=== PATIENT | female | born 1985 | race Two or more races ===

== ENCOUNTER 2019-03-07 11:26 | Emergency (ER) | payer MEDICAID ==
[2019-03-07] MEDS ORDERED: DIPHENHYDRAMINE HCL 50 MG CAPSULE PO ONE (12:06)
--- NOTE | 2019-03-07 12:11 | ER Document Report ---
ED Medical Screen (RME) - General Chief Complaint: Weakness Stated Complaint: WEAKNESS Time Seen by Provider: 03/07/19 12:01 Primary Care Provider: ANGELA TERRELL MD [Primary Care Provider] - Follow up as needed Notes: Patient is a 33-year-old female who presents to the emergency department with a chief complaint of dizziness. Patient states that her symptoms started yesterday. The symptoms have gotten progressively worse. She also has pressure in the front part of her head, but denies any headache. Patient states that she is never had this before. Last menstrual cycle was February 21. Exam: 5/5 strength in all extremities. I have greeted and performed a rapid initial assessment of this patient. A comprehensive ED assessment and evaluation of the patient, analysis of test results and completion of medical decision making process will be conducted by an additional ED providers. TRAVEL OUTSIDE OF THE [place] IN LAST 30 DAYS: No - Related Data Allergies/Adverse Reactions: loratadine [From Claritin] Allergy (Mild, Verified 03/07/19 11:59) Hives Penicillins Allergy (Mild, Verified 03/07/19 11:59) Hives Past Medical History - Past Medical History Cardiac Medical History: Denies: Hx Hypertension, Hx Heart Murmur Neurological Medical History: Reports: Hx Migraine. Denies: Hx Cerebrovascular Accident, Hx Seizures Renal/ Medical History: Reports: Hx Kidney Stones - Last 2011, Hx Ovarian Cysts - left ovary GI Medical History: Reports: Hx Gastroesophageal Reflux Disease - tums. Denies: Hx Hiatal Hernia, Hx Ulcer Past Surgical History: Reports: Hx Section, Hx Tonsillectomy. Denies: Hx Hysterectomy, Hx Pacemaker - Immunizations Hx Diphtheria, Pertussis, Tetanus Vaccination: Yes - received 2009 Physical Exam - Vital signs Vitals: Temp Pulse Resp BP Pulse Ox 98 F 107 H 16 143/88 H 96 03/07/19 11:47 03/07/19 11:47 03/07/19 11:47 03/07/19 11:47 03/07/19 11:47 Course - Vital Signs Vital signs: Temp Pulse Resp BP Pulse Ox 98 F 107 H 16 143/88 H 96 03/07/19 11:47 03/07/19 11:47 03/07/19 11:47 03/07/19 11:47 03/07/19 11:47 Doctor's Discharge - Discharge Referrals: ANGELA TERRELL MD [Primary Care Provider] - Follow up as needed
[2019-03-07 12:48] LABS: ABSOLUTE EOSINOPHILS # (AUTO) 0.1 10^3/uL (0.0-0.6); ABSOLUTE LYMPHOCYTES (AUTO) 2.8 10^3/uL (0.5-4.7); ABSOLUTE MONOCYTES (AUTO) 0.4 10^3/uL (0.1-1.4); ABSOLUTE NEUT (AUTO) 2.8 10^3/uL (1.7-8.2); BASOPHILS % (AUTO) 0.3 % (0-2); EOSINOPHILS % (AUTO) 1.2 % (0-6); HEMATOCRIT 41.6 % (36.0-47.0); HEMOGLOBIN 14.2 g/dL (12.0-15.5); LYMPHOCYTES % (AUTO) 46.3 % (13-45); MEAN CORPUSCULAR HGB CONC 34.3 g/dL (32.0-36.0); MEAN CORPUSCULAR VOLUME 87 fl (80-97); MONOCYTES % (AUTO) 5.9 % (3-13); PLATELET COUNT 298 10^3/uL (150-450); RED BLOOD COUNT 4.76 10^6/uL (3.72-5.28); RED CELL DISTRIBUTION WIDTH 12.7 % (11.5-14.0); SEGMENTED NEUTROPHILS % (AUTO) 46.3 % (42-78); TOTAL CELLS COUNTED % (AUTO) 100 %
[2019-03-07 12:56] LABS: APPEARANCE,URINE SLIGHTLY-CLOUDY; BILIRUBIN,URINE NEGATIVE (NEGATIVE); COLOR,URINE YELLOW; GLUCOSE, URINE NEGATIVE (NEGATIVE); KETONES,URINE NEGATIVE (NEGATIVE); LEUKOCYTE ESTERASE,URINE NEGATIVE (NEGATIVE); NITRITE,URINE NEGATIVE (NEGATIVE); PROTEIN,URINE 30 mg/dL (NEGATIVE); URINE SPECIFIC GRAVITY 1.026; UROBILINOGEN,URINE NEGATIVE mg/dL (<2.0)
[2019-03-07 13:03] LABS: ALBUMIN 4.6 g/dL (3.5-5.0); ALKALINE PHOSPHATASE 58 U/L (38-126); ANION GAP 9 (5-19); ASPARTATE AMINO TRANSFERASE 21 U/L (14-36); BILIRUBIN,DIRECT 0.1 mg/dL (0.0-0.4); BILIRUBIN,TOTAL 0.6 mg/dL (0.2-1.3); BLOOD UREA NITROGEN 16 mg/dL (7-20); CALCIUM 9.6 mg/dL (8.4-10.2); CARBON DIOXIDE 29 mmol/L (22-30); CHLORIDE 104 mmol/L (98-107); GLUCOSE 73 mg/dL (75-110); POTASSIUM 4.5 mmol/L (3.6-5.0); TOTAL PROTEIN 7.7 g/dL (6.3-8.2)
--- NOTE | 2019-03-07 14:47 | EKG REPORT ---
SEVERITY:- NORMAL ECG - SINUS RHYTHM : Confirmed by: Larry Jaquez MD 07-Mar-2019 14:47:04
[2019-03-07 16:18] VITALS: BP 105/70
[2019-03-07] MEDS ORDERED: NORMAL SALINE 1000 ML 1,000 ML IV ONE (16:26)
[2019-03-07] MEDS ORDERED: MECLIZINE HCL 25 MG TABLET PO ONE (17:57)
--- NOTE | 2019-03-07 17:59 | ER Document Report ---
HPI - HPI Time Seen by Provider: 03/07/19 12:01 Pain Level: Denies Notes: Otherwise healthy 33-year-old female presents emergency department chief complaint of dizziness. Patient reports this is been going on for 2 days, states it feels like the room is spinning around her. She states initially was intermittent but now it is constant. She denies any nausea, vomiting, diarrhea or any other symptoms. She has not passed out. - REPRODUCTIVE LMP: 02/21/19 Reproductive: DENIES: : Past Medical History - General Information source: Patient - Social History Smoking Status: Never Smoker Chew tobacco use (# tins/day): No Frequency of alcohol use: None Drug Abuse: None Family History: Reviewed & Not Pertinent Patient has suicidal ideation: No Patient has homicidal ideation: No - Past Medical History Cardiac Medical History: Denies: Hx Hypertension, Hx Heart Murmur Neurological Medical History: Reports: Hx Migraine. Denies: Hx Cerebrovascular Accident, Hx Seizures Renal/ Medical History: Reports: Hx Kidney Stones - Last 2011, Hx Ovarian Cys ts - left ovary GI Medical History: Reports: Hx Gastroesophageal Reflux Disease - tums. Denies: Hx Hiatal Hernia, Hx Ulcer Past Surgical History: Reports: Hx Section - x3, Hx Tonsillectomy. Denies: Hx Hysterectomy, Hx Pacemaker - Immunizations Hx Diphtheria, Pertussis, Tetanus Vaccination: Yes - received 2009 [facility] Provider Document - CONSTITUTIONAL Notes: PHYSICAL EXAMINATION: GENERAL: Well-appearing, well-nourished and in no acute distress. HEAD: Atraumatic, normocephalic. EYES: Pupils equal round and reactive to light, extraocular movements intact, conjunctiva are normal. No nystagmus noted. ENT: Nares patent, oropharynx clear without exudates. Moist mucous membranes. NECK: Normal range of motion, supple without lymphadenopathy LUNGS: Breath sounds clear to auscultation bilaterally and equal. No wheezes ra les or rhonchi. HEART: Regular rate and rhythm without murmurs ABDOMEN: Soft, nontender, nondistended abdomen. No guarding, no rebound. No masses appreciated. Female : deferred Musculoskeletal: Normal range of motion, no pitting or edema. No cyanosis. NEUROLOGICAL: Cranial nerves grossly intact. Normal speech, normal gait. Normal sensory, motor exams PSYCH: Normal mood, normal affect. SKIN: Warm, Dry, normal turgor, no rashes or lesions noted. - INFECTION CONTROL TRAVEL OUTSIDE OF THE [place] IN LAST 30 DAYS: No Course - Vital Signs Vital signs: Temp Pulse Resp BP Pulse Ox 97.9 F 89 16 105/70 99 03/07/19 16:18 03/07/19 16:18 03/07/19 16:18 03/07/19 16:18 03/07/19 16:18 - Laboratory Result Diagrams: 03/07/19 12:29 03/07/19 12:29 Laboratory results interpreted by me: 03/07/19 03/07/19 03/07/19 12:29 12:29 12:29 Lymph % (Auto) 46.3 H Glucose 73 L Urine Protein 30 H Urine Blood MODERATE H Discharge - Discharge Clinical Impression: Vertigo, Dizziness Condition: Stable Disposition: HOME, SELF-CARE Instructions: Dizziness ([facility]), Meclizine ([facility]), Vertigo ([facility]) Additional Instructions: All of your lab work today was unremarkable. I believe your symptoms are coming from the vertigo. Please take the meclizine as prescribed this should help with your symptoms. When you take the tablet of medication I will take at least 30 minutes to see if it is going to affect you. Please also use the nausea medication as prescribed. It is very important for you to set up an appointment with a primary care physician as we are limited as to what we can do in the emergency department, however it is very reassuring that we have not found any life-threatening cause of your dizziness. As discussed this may need further work-up by an ear/nose/throat doctor, I have given you a phone number for them as well. Prescriptions: Meclizine HCl [Antivert 25 mg Tablet] 25 mg PO TID PRN #21 tablet PRN Reason: Ondansetron [Zofran Odt 4 mg Tablet] 1 - 2 tab PO Q4H PRN #15 tab.rapdis PRN Reason: For Nausea/Vomiting Referrals: RICARDO GOYAL DO [ASSOCIATE] - Follow up as needed
[2019-03-07] MEDS ORDERED: ONDANSETRON 4 MG TAB.RAPDIS PO ONE (18:27)
== END 2019-03-07 18:44 | disposition home or self-care (01) ==
LOC: ER 11:26
DX: R42 Dizziness and giddiness (principal)
CPT/HCPCS: 93005; 36415; 84703; 85025; 80053; 81001; 93010; J3490; S0119; J7030; 96360; 99284